=== PATIENT | female | born 1990 | race Caucasian/White ===

== ENCOUNTER 2018-03-31 21:43 | Inpatient (IN) ==
[2018-04-01] MEDS ORDERED: Naloxone 0.4 MG/ML INJ IVP PRN (02:10)
[2018-04-01] MEDS ORDERED: Acetaminophen 325 MG TABLET PO PRN (02:10)
--- NOTE | 2018-04-01 02:30 | Internal Med History&Physical ---
Date of Encounter: 04/01/18 Time of Encounter: 01:30 Internal Medicine - H&P: HPI Chief complaint: Fever and sore throat Admitted From: Home Plans for Post Hospital Care: Home History of present illness: Ms. Michael is a 27 year old female present to [facility] emergency room for fever and sore throat. Past medical history is significant for repeat tonsillitis. Patient has sore throat and fever since Thursday. Patient went to [facility] and was treated as tonsillitis with the Rocephin. Patient feels better after 3 days IV Rocephin treatment and was discharged home with by mouth Augmentin yesterday. Patient feels still have difficulty swallowing and pain on swallowing today and came back to ER. In the emergency room, CT neck has been done which shows tonsillitis but no abscess. Patient has fever on Thursday with temperature 103. Patient has nausea and vomited once yesterday. The vomiting is stomach content, no blood in it. Patient to report heart rate is low to 30 to 40s yesterday. She also complained mild headache. Patient denies difficult breathing, drooling. About 2 weeks ago, patient has cat bite on her right hand and was prescribed clindamycin by PCP. Patient developed rashes. Denies itching. Patient went to see PCP for the rashes and was suspected [place] spotted fever and treated with doxycycline. Not sure rashes is due to clindamycin or [place] spotted fever. Doxycycline has been discontinued during hospitalization in [facility]. Patient denies history of tick bite. Past Med Surg Social Fam HX - Past Medical History Additional medical history: Headaches Psychiatric history: anxiety - Past Surgical History Surgical History: cholecystectomy - Social History Smoking Status: Never smoker Smokeless Tobacco Status: No Alcohol use: none Drug use: none - Family History Mother Living Status: Still Living Hx Family Cardiac Disorders: Yes (HTN) Hx Family Respiratory Disorders: Yes (asthma) Father Living Status: Still Living Hx Family Endocrine Disorder: Yes (DM) Internal Medicine - H&P: Meds 3 Allergy/AdvReac Type Severity Reaction Status Date / Time Sulfa (Sulfonamide Allergy Severe Anaphylaxis Verified 04/01/18 02:00 Antibiotics) clindamycin AdvReac Rash Verified 04/01/18 02:00 All Systems PM: A 10-system review of systems was performed and is negative for pertinent findings except as documented above in the HPI. - Constitutional Vitals: Temp Pulse Resp BP Pulse Ox 97.8 F 58 18 103/70 97 04/01/18 00:43 04/01/18 00:43 04/01/18 00:43 04/01/18 00:43 04/01/18 00:43 General appearance: Present: A&O X 3, no acute distress, answers questions appropriately - Head Head exam: Present: atraumatic, normocephalic - Eye Eye exam: Present: PERRL, conjuntiva pink, sclera anicteric Pupils: Present: PERRL - Neck Neck exam general surgery: Present: lymphadenopathy (With tenderness), supple, trachea midline Additional comments: B/L tonsil enlarged with prudent discharge on the surface. - Respiratory Respiratory exam: Present: CTAB. Absent: accessory muscle use, rales, rhonchi, wheezes - Cardiovascular Cardiovascular exam: Present: RRR, +S1, +S2. Absent: diastolic murmur, gallop, rubs, systolic murmur - GI/Abdominal GI/Abdominal exam: Present: normal bowel sounds, soft, tenderness (Mild LLQ tenderness without rebound or guarding), no peritoneal signs. Absent: distended - Extremities Exam Extremities exam: Present: warm, radial pulses palpable and symmetrical. Absent : calf tenderness, cyanotic, pedal edema - Neurological Exam Neurological exam: Present: CN II-XII intact, oriented X3, no focal deficits. Absent: pronater drift, facial droop, speech deficit - Skin Skin exam: Present: dry, intact - Assessment and plan (1) Tonsillitis Current Visit: Yes Status: Acute Assessment and plan: Patient has severe tonsillitis without abscess. Will place patient on Vanco and Rocephin IV. Consider ENT consult. ENT physician Dr. Lozano has been called by [place] emergency room, but not confirm the consult. Day shift please call him again. (2) Bradycardia Current Visit: Yes Status: Acute Assessment and plan: Patient reports bradycardia to 30s. Etiology is undetermined. Will place patient on cardiac monitoring, echo and EKG. (3) Thyroid lesion Current Visit: Yes Status: Acute Assessment and plan: Incidentally finding by neck CT in [place] ER. Radiologist recommended US thyroid, order placed. (4) Abdominal pain Current Visit: Yes Status: Acute Assessment and plan: Etiology is undetermined. Patient denies diarrhea. CT abdomen shows no acute abnormalities. Continue closely monitor patient and symptomatic treatment. Qualifiers: Abdominal location: left lower quadrant Qualified Code(s): R10.32 - Left lower quadrant pain (5) DVT prophylaxis Current Visit: Yes Status: Acute Assessment and plan: Patient is young and ambulating well. No anticoagulation placed - Time Spent With Patient Total time spent is greater than 50% in coordination of care (as documented) at patient's floor/unit and/or counseling patient: 40 min Greater than 35 minutes
[2018-04-01] MEDS: Ketorolac 30 MG/ML VIAL IVP PRN ×3 (02:46→14:51)
[2018-04-01] MEDS ORDERED: cefTRIAXone 1,000 MG in Water for inj. (sterile) 20 ML 10 ML IVPB SCH (03:00)
[2018-04-01 03:17] LABS: Basophils % 0.2 %; Hematocrit 36.7 % (35.3-44.9); Hemoglobin 12.2 g/dL (11.5-15.4); Immature Granulocytes % 0.3 % (0-4); Lymphocytes # 1.6 K/mcL (0.6-4.6); Lymphocytes % 15.5 %; Mean Corpuscular HGB Conc 33.2 g/dL (31.6-35.5); Mean Corpuscular Volume 90.4 fL (83.0-100.0); Mean Platelet Volume 10.3 fL (9.4-12.4); Monocytes # 0.3 K/mcL (0.0-1.3); Monocytes % 2.8 %; Neutrophils # 8.4 K/mcL (1.6-8.9); Platelet Count 187 K/mcL (140-400); Red Blood Count 4.06 M/mcL (3.82-4.97); Red Cell Distribution Width 12.7 % (11.5-14.5); Segmented Neutrophils % 81.2 %
[2018-04-01 03:35] LABS: BUN/Creatinine Ratio 20 (6-26); Blood Urea Nitrogen 11 mg/dL (6-20); Calcium 8.3 mg/dL (8.6-10.3); Carbon Dioxide 22 mEq/L (23-29); Chloride 106 mEq/L (98-107); Glucose 124 mg/dL (70-105); Osmolality,Calculated 285 (280-300); Potassium 3.8 mEq/L (3.5-5.1); Sodium 137 mEq/L (136-145); eGFR For African Americans > 60 (> 60); eGFR For Non-African Americans > 60 (> 60)
[2018-04-01 03:53] LABS: Platelet Estimate Normal (Normal)
--- NOTE | 2018-04-01 08:54 | Electrocardiograph Report ---
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
--- NOTE | 2018-04-01 10:35 | Infectious Disease Consult ---
Date of Encounter: 04/01/18 Time of Encounter: 10:34 Assessment and Plan (1) Tonsillitis Status: Acute Assessment and plan: Patient has a known history of persistent tonsillitis. - CT scan of the neck at [facility] demonstrated tonsillitis without abscess - Patient is currently on vancomycin and Rocephin IV; will d/c rocephin - Will start Unasyn 12 daily, 3g Q6 - Will order respiratory infection panel, throat CX - We will repeat CT scan if there is no improvement - Possible ENT consult Get respiratory infectious panel Get a swab culture Continue vancomycin and Zosyn for now; goal vancomycin trough 10-15 (2) Bradycardia Status: Acute Assessment and plan: Patients heart rate went down into the 40s; etiology undetermined at this time - Patient is currently on continuous telemetry - Echocardiogram has been ordered (3) Thyroid lesion Status: Acute Assessment and plan: Incidentally finding by neck CT in [facility] ER - Radiologist recommended US thyroid, order placed (4) Allergy to antibiotic Status: Acute Assessment and plan: Had a rash with clindamycin Sulfa anaphylaxis reaction (5) Obesity (BMI 30.0-34.9) Status: Acute (6) Rash Status: Acute Assessment and plan: Etiology not clear. Patient could be having a viral syndrome. I will also check syphilis and HIV. Infectious Disease HPI - Data of Consult Consult date: 04/01/18 Requesting Physician: Lux Villagran Primary Care Provider: PCP NONE - Consult Narrative Reason for consult: Fever, concern for RMSF History of present illness: Patient is a 27-year-old female who presented to [facility] ER with a chief complaint of fever and sore throat. We are consulted for management of fever and possible [place] spotted fever. Patient has a known history of repeat tonsillitis. She reported having a sore throat and fever since Thursday. Presented to [facility]; was treated with Rocephin for tonsillitis. Received IV Rocephin for 3 days; was discharged from [facility] with Augmentin. Patient reported that she still had difficulty swallowing subsequently, presented back to ER. In the emergency department, CT of the neck demonstrated tonsillitis without abscess. Reported having a fever with MAXIMUM TEMPERATURE of 103. She admitted to nausea and one episode of vomiting. Patient also reported that approximately 2 weeks prior, her cat bit her right hand; was prescribed clindamycin by her PCP. She developed rashes subsequently; her PCP prescribed her with doxycycline due to concern of [place] spotted fever. She denies having any known history of tick bite. Patient was transferred to [place] for further management. On arrival to [facility], vital signs were as follows: Temperature 97.8, HR 58, RR 18 , BP 103/70, O2 sat 97. Laboratory analysis was unremarkable; white count was 10.3. Patient had a strep test performed at [facility] which was negative. Monospot was also negative. Patient was started on Rocephin 1 g every 24 hours and vancomycin. Given Toradol for pain control. Patient was noted to be bradycardic with heart rate going down to the 40s; echocardiogram has been ordered. Patient was seen and examined at bedside this morning. Patient reports that she is still having a sore throat. Reports that the pain is getting progressively worse. Was able to swallow ice chips earlier; has not been able to eat anything else. Patient reports that she has had tonsillar problems throughout her life. Notes that she had previously seen an ENT doctor in [place] who told her that she would need to have tonsillitis at least 10 times before surgical intervention was an option. Subjective chills and fever, but denies having any abdominal pain, neck pain, nausea, vomiting, or itching. The rash that had previously been on her palms and her soles has since resolved. 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 No recent travel history. Reports an allergy to sulfa drugs and clindamycin. Denies the use of tobacco, alcohol, or drugs. Denies any known tick bites. CC: Lux Villagran Past Med Surg Social Fam HX - Past Medical History Additional medical history: Headaches Psychiatric history: anxiety - Past Surgical History Surgical History: cholecystectomy - Social History Smoking Status: Never smoker Smokeless Tobacco Status: No Alcohol use: none Drug use: none - Family History Mother Living Status: Still Living Hx Family Cardiac Disorders: Yes (HTN) Hx Family Respiratory Disorders: Yes (asthma) Father Living Status: Still Living Hx Family Endocrine Disorder: Yes (DM) Infectious Disease-CN:Meds Doxycycline Hyclate [Doxycycline Hyclate] 100 mg PO BID 04/01/18 [History] l-Norgest/E.estradiol-E.estrad [Levono-E Estrad 0.10-0.02-0.01] 1 tab PO DAILY 04/01/18 [History] predniSONE [PredniSONE] 5 mg PO AD 04/01/18 [History] 3 Allergy/AdvReac Type Severity Reaction Status Date / Time Sulfa (Sulfonamide Allergy Severe Anaphylaxis Verified 04/01/18 02:00 Antibiotics) clindamycin AdvReac Rash Verified 04/01/18 02:00 Review of systems: 10 point review of systems done, negative other for what is mentioned in history of present illness. - Constitutional Constitutional: Present: fatigue, fever(s), lethargy, malaise Additional comments: Patient reports a subjective sensation of fever - Cardiovascular Cardiovascular: Present: slow heart rate. Absent: chest pain, chest pain at rest, chest pain with activity, dyspnea on exertion, leg edema - Respiratory Respiratory: Absent: cough, dyspnea, wheezing, stridor - Gastrointestinal Gastrointestinal: Absent: abdominal pain, nausea, vomiting - Musculoskeletal Musculoskeletal: Absent: arthralgias, myalgias - Integumentary Integumentary: Absent: rash, wounds Exam - Constitutional Vitals: Temp Pulse Resp BP Pulse Ox 98.5 F 46 15 109/72 98 04/01/18 10:14 04/01/18 10:14 04/01/18 10:14 04/01/18 10:14 04/01/18 10:14 - Head Head exam: Present: atraumatic, normocephalic - ENT Additional comments: Uvula midline - Expanded ENT Exam Mouth exam: Absent: drooling, muffled voice, tongue elevation Teeth exam: Absent: dental caries Throat exam: Present: tonsillar erythema, tonsillar exudate (Tonsillar erythema and exudate present bilaterally. No shift in uvula for midline.) - Neck Neck exam: Present: lymphadenopathy (Patient has anterior cervical lymphadenopathy bilaterally), tenderness. Absent: meningismus - Respiratory Respiratory exam: Present: CTAB. Absent: decreased breath sounds, rales, respiratory distress, rhonchi, wheezes, tachypnea - Cardiovascular Cardiovascular exam: Present: bradycardia, +S1, +S2. Absent: irregular rhythm, systolic murmur - GI/Abdominal GI/Abdominal exam: Present: soft. Absent: tenderness - Extremities Exam Extremities exam: Present: full ROM. Absent: joint swelling - Neurological Exam Neurological exam: Present: alert, oriented X3, no focal deficits - Psychiatric Psychiatric exam: Present: anxious, normal affect, normal mood - Skin Skin exam: Absent: rash Additional comments: No rash visible on hands or feet. Mild texture changes apparent on palms. Infectious Disease CN: Results - Labs CBC & Chem 7: 04/01/18 02:56 04/01/18 02:56 Cultures: Cultures 04/01/18 02:56 Blood Culture - Preliminary Peripheral Venipuncture Culture is incubating and being continuously monitored for growth. Final report to follow. 04/01/18 02:56 Blood Culture - Preliminary Peripheral Venipuncture Culture is incubating and being continuously monitored for growth. Final report to follow. Consult Discharge Plan - Plan Referrals: NONE,PCP [Primary Care Provider] - - Attending Attestation I examined this patient and my medical decision-making was reviewed with the Resident Physician. I agree with the documented findings, disposition and treatment plan as described except to the extent set forth below. Patient is a 27-year-old woman with past medical history mentioned below states that a couple weeks ago started having tonsillar pain and swelling and having difficulty swallowing. Patient tells me she has this recurrent infection frequently. Patient apparently was given doxycycline because she also was having a rash on her hands and on her feet and palms and soles of the feet. Patient states that with doxycyclines who is doing worse and worse. Patient was seen at [facility] was admitted again was started on Rocephin area received 2 days of Rocephin and was discharged on Augmentin. That evening to improve her symptoms. Patient was feeling much worse eventually came here for evaluation. Patient did have a CT neck at the outside facility. I will have the report by review the CT itself and it does not appear to have a peritonsillar abscess. Patient was found vancomycin and Rocephin. Currently patient appears comfortable does not appear toxic states that she feels better but he gave her a septic spray that numbs her throat. On physical exam she does have significant exudate on both sides. And there is tonsillar swelling but the uvula is midline and there is no signs of peritonsillar abscess. Further questioning patient is sexually active with one person that she has been with for 2 months. She states that she always uses protection. Denies any history of STDs. The rest of her history physical exam and exposure history is really unremarkable. She grew up in [place] and lives in [place] last her for 3 months. 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 I do not think any of this is relevant at this point. check swab cultuere check HIV check RPR check Respiratory infectious panel.
--- NOTE | 2018-04-01 11:04 | Electrophysiology Consult Note ---
Date of Encounter: 04/01/18 Time of Encounter: 10:59 Assessment and Plan (1) Bradycardia Current Visit: Yes Status: Acute Sinus bradycardia. Likely secondary to vagal stimulus form acute infection. No evidence of AV block. Thyroid disease also a possibility and is currently being worked up. At this point I don't think any further cardiac testing is needed. Discussion w patient/family: The assessment and plan as outlined above was discussed with the patient and/or family members who expressed understanding and agreement. All questions were answered. Thank you for involving us in the care of your patient. Please call with any questions. History of Present Illness Consult date: 04/01/18 Requesting physician: Sury Hines Consult reason: Bradycardia Chief complaint: Tonsillitis History of present illness: Ms. Michael is a 27 year old female who has been suffering form multiple infectious problems recently, the most recent being tonsilitis. While hospitalized she has been noted to have sinus bradycardia. She notes that previous to this acute exacerbation her heart rate often ran on high 40s. Past Med Surg Social Fam HX - Past Medical History Additional medical history: Headaches Psychiatric history: anxiety - Past Surgical History Surgical History: cholecystectomy - Social History Smoking Status: Never smoker Smokeless Tobacco Status: No Alcohol use: none Drug use: none - Family History Mother Living Status: Still Living Hx Family Cardiac Disorders: Yes (HTN) Hx Family Respiratory Disorders: Yes (asthma) Father Living Status: Still Living Hx Family Endocrine Disorder: Yes (DM) Medications and Allergies Doxycycline Hyclate [Doxycycline Hyclate] 100 mg PO BID 04/01/18 [History] l-Norgest/E.estradiol-E.estrad [Levono-E Estrad 0.10-0.02-0.01] 1 tab PO DAILY 04/01/18 [History] predniSONE [PredniSONE] 5 mg PO AD 04/01/18 [History] 3 Allergy/AdvReac Type Severity Reaction Status Date / Time Sulfa (Sulfonamide Allergy Severe Anaphylaxis Verified 04/01/18 02:00 Antibiotics) clindamycin AdvReac Rash Verified 04/01/18 02:00 All Systems Review: The remainder of the systems were reviewed and are negative Physical Examination Vital Signs, Last 4 Hours Temp Pulse Resp BP Pulse Ox 04/01/18 10:14 98.5 F 46 15 109/72 98 General: Conversant, No Apparent Distress Neck: No JVD, Normal carotid pulses Cardiac: Reg Rate and Rhythm, Normal S1 and S2, No Murmur Lungs: Normal Breath Sounds, No Wheeze, Rales, Rhonchi Neuro: Alert and responsive, No focal deficits noted Abdomen: Soft, Non-Tender Skin: No rashes noted on visualized skin Musculoskeletal: No Chest Wall Tenderness Extremities: No Clubbing, No Cyanosis, No Edema, Normal Pulses Results 04/01/18 02:56 04/01/18 02:56 Lab Results 04/01/18 04/01/18 02:56 02:56 WBC 10.3 Hgb 12.2 Hct 36.7 Plt Count 187 Sodium 137 Potassium 3.8 Chloride 106 Carbon Dioxide 22 L BUN 11 Creatinine 0.54 L Glucose 124 H Calcium 8.3 L TSH 0.600 - EKG Interpretation EKG results cardiology: personally reviewed (Sinus bradycardia) Consult Discharge Plan - Plan Referrals: NONE,PCP [Primary Care Provider] -
[2018-04-01] MEDS ORDERED: *HR* OxyCODONE Immed Rel 5 MG TABLET PO PRN (14:10)
[2018-04-01] MEDS ORDERED: Chloraseptic Spray 177 ML BOTTLE MM PRN (14:17)
[2018-04-01] MEDS: 0.9 % Sodium Chloride 1,000 ML IVC SCH (14:56)
[2018-04-01] MEDS: Ketorolac 30 MG/ML VIAL IVP SCH ×2 (21:37→21:40)
[2018-04-02] MEDS: Ampicillin/Sulbactam 3,000 MG in 0.9 % Sodium Chloride Mini Bag 100 ML IVPB SCH ×5 (00:11→23:14)
[2018-04-02] MEDS: 0.9 % Sodium Chloride 1,000 ML IVC SCH ×2 (03:06→21:12)
[2018-04-02] MEDS: Ketorolac 30 MG/ML VIAL IVP SCH ×4 (03:36→23:15)
[2018-04-02] MEDS: Ondansetron 4 MG/2 ML VIAL IVP PRN (08:57)
--- NOTE | 2018-04-02 10:23 | Infectious Disease Progress No ---
Date of Encounter: 04/02/18 Time of Encounter: 10:20 - Assessment and Plan (1) Tonsillitis Current Visit: Yes Status: Acute Patient has a known history of persistent tonsillitis. - CT scan of the neck at [facility] demonstrated tonsillitis without abscess - Patient is currently on vancomycin and Rocephin IV; will d/c rocephin - Will order respiratory infection panel, throat CX - We will repeat CT scan if there is no improvement - ENT consult has been ordered - Get respiratory infectious panel - Get a swab culture - Continue vancomycin and Unasyn for now; goal vancomycin trough 10-15 (2) Bradycardia Current Visit: Yes Status: Acute Patients heart rate went down into the 40s; etiology undetermined at this time - Electrophysiology is on board; per EP note: Patient's condition likely secondary to vagal stimulus form acute infection; No evidence of AV block - Thyroid disease also a possibility; currently being worked up (3) Thyroid lesion Current Visit: Yes Status: Acute Incidentally finding by neck CT in [facility] ER (4) Allergy to antibiotic Current Visit: Yes Status: Acute Had a rash with clindamycin Sulfa anaphylaxis reaction (5) Obesity (BMI 30.0-34.9) Current Visit: Yes Status: Acute (6) Rash Current Visit: Yes Status: Acute Etiology not clear. Patient could be having a viral syndrome. - HIV/T.Pallidium nonreactive - Subjective Interval history: Patient was seen and examined at [facility] this morning. She reports that she is feeling the same since yesterday. Has not been able to eat or drink much except for broth. Still complains of a sore throat and swollen lymph nodes in her neck. Also states that her stomachhurts. She denies fever, chills, nausea , vomiting, or neck pain. No further complaints. Infect Dis PN-Objective Data - Labs CBC & Chem 7: 04/04/18 08:15 04/04/18 08:15 Labs: Laboratory Results - last 24 hr 04/01/18 04/01/18 04/01/18 02:56 20:59 20:59 TSH 0.600 Free T4 1.09 T.pallidum Ab Interpret Negative HIV Ag/Ab Combo Qual Nonreactive Cultures: Cultures 04/01/18 02:56 Blood Culture - Preliminary Peripheral Venipuncture Culture is incubating and being continuously monitored for growth. Final report to follow. 04/01/18 02:56 Blood Culture - Preliminary Peripheral Venipuncture Culture is incubating and being continuously monitored for growth. Final report to follow. Serology 04/01/18 04/01/18 Range/Units 20:59 20:59 T.pallidum Ab Interpret Negative (NEGATIVE) HIV Ag/Ab Combo Qual Nonreactive (Nonreactive) - Impressions Impressions Echocardiogram 04/01/18 02:20 Impressions: LVEF 55-60%. No segmental dysfunction. Normal left ventricular diastolic function. No pulmonary hypertension. No significant valvular dysfunction. Left Ventricular Wall Motion: Rest Echo Findings All wall segments showed normal motion. Findings: Study Quality * Technically adequate exam. Right Ventricle * Normal right ventricular structure and function. Right Atrium * Normal right atrial size. Aortic Valve * Trileaflet aortic valve with normal function. Interatrial Septum * No evidence of PFO by color Doppler. Aorta * Normally sized aortic root. Pericardium * The pericardium appears normal. ECG Findings * Sinus bradycardia. Left Ventricle * LVEF 55-60%. * No segmental dysfunction. * Normal left ventricular diastolic function. Left Atrium * Mildly dilated left atrium. Tricuspid Valve * No tricuspid stenosis. * Trace tricuspid regurgitation. * Estimated RVSP is 19 mmHg. * Estimated RA pressure is 0-5 mmHg. * No pulmonary hypertension. Pulmonic Valve * No pulmonic stenosis. * Mild pulmonic regurgitation. Mitral Valve * Normal mitral valve structure. * No mitral stenosis. * Trace mitral regurgitation. IVC * Normal IVC dimensions and inspiratory collapse. Thyroid Ultrasound 04/01/18 13:00 IMPRESSION: 1. 0.6 cm x 0.5 cm x 0.3 cm TI-RADS TR3 nodule in the upper left thyroid lobe and 1.2 cm x 1.1 cm x 0.6 cm TR1 nodule in the lower left thyroid lobe. No follow-up is recommended as below. 2. Otherwise normal sonographic appearance of the thyroid. RECOMMENDATIONS: ACR TI-RADS recommendations TR3 (3 points): FNA if >= 2.5 cm; follow-up if 1.5-2.4 cm in 1, 3, and 5 years TR1 (0 points): No FNA or follow-up D/ / Roger Santiago MD / Roger Santiago MD Interpreting Provider: Roger Santiago MD Exam - Constitutional Vitals: Temp Pulse Resp BP Pulse Ox 97.9 F 60 14 105/70 97 04/02/18 07:02 04/02/18 07:02 04/02/18 07:02 04/02/18 07:02 04/02/18 07:02 General appearance: no acute distress - Respiratory Respiratory exam: Present: CTAB. Absent: decreased breath sounds, rales, rhonchi, tachypnea - Cardiovascular Cardiovascular exam: Present: RRR, +S1, +S2. Absent: bradycardia, systolic murmur - GI/Abdominal GI/Abdominal exam: Present: soft. Absent: tenderness - Psychiatric Psychiatric exam: Present: normal affect, normal mood - Skin Skin exam: Present: dry, intact Consult Discharge Plan - Plan Referrals: NONE,PCP [Primary Care Provider] - - Attending Attestation I examined this patient and my medical decision-making was reviewed with the Resident Physician. I agree with the documented findings, disposition and treatment plan as described except to the extent set forth below.
[2018-04-02 11:41] LABS: Adenovirus Not Detected (Not Detect); Bordetella Pertussis Not Detected (Not Detect); Chlamydophila pneumoniae Not Detected (Not Detect); Coronavirus 229E Not Detected (Not Detect); Coronavirus HKU1 Not Detected (Not Detect); Coronavirus NL63 Not Detected (Not Detect); Coronavirus OC43 Not Detected (Not Detect); Human Metapneumovirus Not Detected (Not Detect); Human Rhinovirus/Enterovirus Not Detected (Not Detect); Influenza A Subtype 2009 H1 Not Detected (Not Detect); Influenza A Untypeable Not Detected (Not Detect); Influenza B Not Detected (Not Detect); Mycoplasma pneumoniae Not Detected (Not Detect); Parainfluenza Virus 1 Not Detected (Not Detect); Parainfluenza Virus 2 Not Detected (Not Detect); Parainfluenza Virus 3 Not Detected (Not Detect); Parainfluenza Virus 4 Not Detected (Not Detect); Respiratory Syncytial Virus Not Detected (Not Detect)
[2018-04-02] MEDS ORDERED: Isovue-370 500 ML INFUS..BTL IV ONE (12:41)
--- NOTE | 2018-04-02 16:59 | ENT - Consult Note ---
Date of Encounter: 04/02/18 Time of Encounter: 12:00 Assessment and Plan (1) Tonsillitis Current Visit: Yes Status: Acute She has exudative tonsillitis and has a h/o recurrent tonsillitis. She meets criteria for outpatient tonsillectomy but for her admission I don't see a surgical issue at this time. Advise abx and steroids w/ transition to PO and d/ c home when she can tolerate liquids. F/U with ENT as outpatient. History of Present Illness Consult date: 04/02/18 Reason for ENT Consult: other (tonsillitis) History of present illness: 27 y/o F here for tonsillitis. She has had this for over a week, needed admission for pain control and lack of PO intake a week ago at OSH, was discharged but came back to their ED and she was transferred here for escalation of care. She was admitted to hospitalist service through our ED. Admitted on IV Unsayn and Vanc. She still has a very sore throat and has trouble swallowing. Has been using topical anethetic spray which helps. Had CT neck w/ contrast on 03/31/18 which did not show any abscess formation. Had steroids in the outside ED. Has h/o recurrent tonsillitis 3-4 a year for years. Required admission once before in 2009, no abscess hx. Past Med Surg Social Fam HX - Past Medical History Additional medical history: Headaches Psychiatric history: anxiety - Past Surgical History Surgical History: cholecystectomy - Social History Smoking Status: Never smoker Smokeless Tobacco Status: No Alcohol use: none Drug use: none - Family History Mother Living Status: Still Living Hx Family Cardiac Disorders: Yes (HTN) Hx Family Respiratory Disorders: Yes (asthma) Father Living Status: Still Living Hx Family Endocrine Disorder: Yes (DM) Medications and Allergies Doxycycline Hyclate [Doxycycline Hyclate] 100 mg PO BID 04/01/18 [History] l-Norgest/E.estradiol-E.estrad [Levono-E Estrad 0.10-0.02-0.01] 1 tab PO DAILY 04/01/18 [History] predniSONE [PredniSONE] 5 mg PO AD 04/01/18 [History] 3 Allergy/AdvReac Type Severity Reaction Status Date / Time Sulfa (Sulfonamide Allergy Severe Anaphylaxis Verified 04/01/18 02:00 Antibiotics) clindamycin AdvReac Rash Verified 04/01/18 02:00 ENT - ROS - EENT Nose, mouth and throat: sore throat ENT Exam Initial Vital Signs Temp Pulse Resp BP Pulse Ox 97.8 F 58 18 103/70 97 04/01/18 00:43 04/01/18 00:43 04/01/18 00:43 04/01/18 00:43 04/01/18 00:43 - General physical appearance moderate pain, obese - ENT normal pinna, normal nares, normal mucosa, no hearing loss, no congestion, mucosal exudate, CN 2-12 grossly intact, Other (3+ tonsils w/ exudate, no evidence of [employer] (no soft palate swelling); good neck ROM) - Neck no masses, other (some tender level II LAD) Exam Initial Vital Signs Temp Pulse Resp BP Pulse Ox 97.8 F 58 18 103/70 97 04/01/18 00:43 04/01/18 00:43 04/01/18 00:43 04/01/18 00:43 04/01/18 00:43 Results - Labs 04/01/18 02:56 04/01/18 02:56 Abnormal lab results Carbon Dioxide 22 mEq/L (23-29) L 04/01/18 02:56 Creatinine 0.54 mg/dL (0.60-1.20) L 04/01/18 02:56 Glucose 124 mg/dL (70-105) H 04/01/18 02:56 Calcium 8.3 mg/dL (8.6-10.3) L 04/01/18 02:56 All other labs normal. Consult Discharge Plan - Plan Referrals: NONE,PCP [Primary Care Provider] -
[2018-04-03] MEDS: Ketorolac 30 MG/ML VIAL IVP SCH ×3 (04:43→16:28)
[2018-04-03] MEDS: Ampicillin/Sulbactam 3,000 MG in 0.9 % Sodium Chloride Mini Bag 100 ML IVPB SCH ×4 (04:56→23:46)
[2018-04-03] MEDS: Ondansetron 4 MG/2 ML VIAL IVP PRN (04:59)
[2018-04-03] MEDS: 0.9 % Sodium Chloride 1,000 ML IVC SCH ×4 (05:28→20:08)
[2018-04-03 09:31] LABS: Basophils % 0.2 %; Eosinophils # 0.2 K/mcL (0.0-0.6); Eosinophils % 3.6 %; Hematocrit 36.5 % (35.3-44.9); Hemoglobin 12.7 g/dL (11.5-15.4); Immature Granulocytes % 0.3 % (0-4); Lymphocytes % 47.7 %; Mean Corpuscular HGB Conc 34.8 g/dL (31.6-35.5); Mean Corpuscular Hemoglobin 31.1 pg (28.0-33.3); Mean Corpuscular Volume 89.2 fL (83.0-100.0); Mean Platelet Volume 10.5 fL (9.4-12.4); Monocytes # 0.4 K/mcL (0.0-1.3); Monocytes % 6.8 %; Platelet Count 182 K/mcL (140-400); Red Blood Count 4.09 M/mcL (3.82-4.97); Red Cell Distribution Width 12.3 % (11.5-14.5); Segmented Neutrophils % 41.4 %
[2018-04-03 09:37] LABS: Lymphocytes # 3.1 K/mcL (0.6-4.6); Neutrophils # 2.7 K/mcL (1.6-8.9)
[2018-04-03] MEDS ORDERED: Promethazine 12.5 MG in 0.9 % Sodium Chloride 50 ML IVPB PRN (09:40)
[2018-04-03] MEDS ORDERED: *HR* Promethazine 25 MG/ML VIAL IVP PRN (09:42)
[2018-04-03] MEDS ORDERED: *HR* Promethazine 25 MG/ML VIAL ONE (09:44)
[2018-04-03 09:50] LABS: BUN/Creatinine Ratio 19 (6-26); Blood Urea Nitrogen 12 mg/dL (6-20); Calcium 8.5 mg/dL (8.6-10.3); Carbon Dioxide 26 mEq/L (23-29); Chloride 106 mEq/L (98-107); Glucose 99 mg/dL (70-105); Osmolality,Calculated 284 (280-300); Potassium 3.3 mEq/L (3.5-5.1); Sodium 137 mEq/L (136-145); eGFR For African Americans > 60 (> 60); eGFR For Non-African Americans > 60 (> 60)
[2018-04-03 10:00] LABS: Platelet Estimate Normal (Normal); Reactive Lymphocytes Present (Not Present)
[2018-04-03] MEDS ORDERED: Potassium Chloride 40 MEQ, Lidocaine 1% 2 ML in D5% in Water 500 ML IVPB ONE (14:44)
[2018-04-03] MEDS ORDERED: Potassium Chloride Elixir 20 MEQ/15 ML UDC PO ONE (18:25)
--- NOTE | 2018-04-03 22:56 | Internal Med Progress Note ---
Date of Encounter: 04/02/18 Time of Encounter: 19:00 - Assessment and plan (1) Exudative tonsillitis Current Visit: Yes Status: Acute (2) Dysphagia Current Visit: Yes Status: Acute Qualifiers: Dysphagia type: oral phase Qualified Code(s): R13.11 - Dysphagia, oral phase (3) Multiple thyroid nodules Current Visit: Yes Status: Chronic (4) Acute hypokalemia Current Visit: Yes Status: Acute - Time Spent With Patient Total time spent is greater than 50% in coordination of care (as documented) at patient's floor/unit and/or counseling patient: 25 - 35 minutes - Subjective Interval history: .. The patient feels better. The pain in the throat is moderate in intensity. She feels that she is ready to try mechanical soft diet. Denies fever and chills. She is afebrile. Denies chest pain. Denies difficulty breathing, coughing and wheezing. She has very mild mid epigastric discomfort. She has normal urination. OBJECTIVE: .. Skin: Free of rash and discoloration. ENMT: Her tonsils are big. They are covered by grayish/whitish exudate. Eyes: Sclera is white. There is no discharge from eyes. Respiratory: Normal breath sounds; no crackles or wheezes. CV: Heart is regular; no gallop or murmur. GI: Abdomen is soft and not tender. There is no palpable mass or visceromegaly. Neuro: There is no focal deficits. ASSESSMENT AND PLAN: .. Exudative tonsillitis/dysphagia. The patient has been seen by infectious diseases and ENT diseases. Will continue IV Unasyn/IV vancomycin. Her cultures are negative. Will put her on mechanical soft diet. Multiple thyroid nodules. See notes from radiology. They do not require any follow-ups. Mild hypokalemia. Secondary to IV fluids. We will repeat electrolytes tomorrow. - Constitutional Vitals: Temp Pulse Resp BP Pulse Ox 98.3 F 68 16 114/78 95 04/03/18 18:51 04/03/18 18:51 04/03/18 18:51 04/03/18 18:51 04/03/18 18:51 General appearance: Present: A&O X 3, no acute distress, answers questions appropriately Internal Medicine: Result - Labs CBC & Chem 7: 07/07/18 08:57 04/03/18 08:57 Labs: Short CBC 04/03/18 Range/Units 08:57 WBC 6.4 (4.3-11.1) K/mcL Hgb 12.7 (11.5-15.4) g/dL Hct 36.5 (35.3-44.9) % Plt Count 182 (140-400) K/mcL Neutrophils # 2.7 (1.6-8.9) K/mcL BMP 04/03/18 08:57 Sodium 137 Potassium 3.3 L Chloride 106 Carbon Dioxide 26 BUN 12 Creatinine 0.64 Glucose 99 Calcium 8.5 L Consult Discharge Plan - Plan Referrals: NONE,PCP [Primary Care Provider] -
--- NOTE | 2018-04-03 23:21 | Internal Med Progress Note ---
Date of Encounter: 04/03/18 Time of Encounter: 19:00 - Assessment and plan (1) Exudative tonsillitis Current Visit: Yes Status: Acute (2) Dysphagia Current Visit: Yes Status: Acute Qualifiers: Dysphagia type: oral phase Qualified Code(s): R13.11 - Dysphagia, oral phase (3) Multiple thyroid nodules Current Visit: Yes Status: Chronic (4) Acute hypokalemia Current Visit: Yes Status: Acute - Time Spent With Patient Total time spent is greater than 50% in coordination of care (as documented) at patient's floor/unit and/or counseling patient: 25 - 35 minutes - Subjective Interval history: .. She is on mechanical soft diet. She ate some mashed potatoes for lunch. She is okay with similar foods. The pain in the area of her tonsils is mild/ moderate. It continues to compromise his intake of fluids and calories. Denies chest pain. Denies difficulty breathing, coughing and wheezing. She has very mild mid epigastric discomfort. She has normal urination. She does have history of recurrent tonsillitis in the last time a few years. It happens 3 or 4 times a year. OBJECTIVE: .. Skin: Free of rash and discoloration. ENMT: Her tonsils are big. They are covered by grayish/whitish exudate. Today I can see some areas of her tonsils not covered by exudate. The tonsils are moderately enlarged. Eyes: Sclera is white. There is no discharge from eyes. Respiratory: Normal breath sounds; no crackles or wheezes. CV: Heart is regular; no gallop or murmur. GI: Abdomen is soft and not tender. There is no palpable mass or visceromegaly. Neuro: There is no focal deficits. ASSESSMENT AND PLAN: .. Exudative tonsillitis/dysphagia. The patient has been seen by infectious diseases and ENT diseases. Will continue IV Unasyn/IV vancomycin. Her cultures are negative. We will continue mechanical so diet. The patient will likely have tonsillectomy after discharging her home. Multiple thyroid nodules. See notes from radiology. They do not require any follow-ups. Acute hypokalemia.. Secondary to IV fluids. We tried to give her potassium chloride rider with lidocaine. She cannot tolerate them. We will try potassium chloride elixir. - Constitutional Vitals: Temp Pulse Resp BP Pulse Ox 98.3 F 68 16 114/78 95 04/03/18 18:51 04/03/18 18:51 04/03/18 18:51 04/03/18 18:51 04/03/18 18:51 General appearance: Present: A&O X 3, no acute distress, answers questions appropriately Internal Medicine: Result - Labs CBC & Chem 7: 04/03/18 08:57 04/03/18 08:57 Labs: Short CBC 04/03/18 Range/Units 08:57 WBC 6.4 (4.3-11.1) K/mcL Hgb 12.7 (11.5-15.4) g/dL Hct 36.5 (35.3-44.9) % Plt Count 182 (140-400) K/mcL Neutrophils # 2.7 (1.6-8.9) K/mcL BMP 04/03/18 08:57 Sodium 137 Potassium 3.3 L Chloride 106 Carbon Dioxide 26 BUN 12 Creatinine 0.64 Glucose 99 Calcium 8.5 L Consult Discharge Plan - Plan Referrals: NONE,PCP [Primary Care Provider] -
[2018-04-04] MEDS: Ampicillin/Sulbactam 3,000 MG in 0.9 % Sodium Chloride Mini Bag 100 ML IVPB SCH ×3 (05:17→17:53)
[2018-04-04] MEDS: 0.9 % Sodium Chloride 1,000 ML IVC SCH ×2 (08:14→23:00)
[2018-04-04 08:51] LABS: Basophils % 0.3 %; Eosinophils # 0.4 K/mcL (0.0-0.6); Eosinophils % 5.7 %; Hematocrit 36.5 % (35.3-44.9); Hemoglobin 12.2 g/dL (11.5-15.4); Immature Granulocytes % 0.3 % (0-4); Lymphocytes # 3.4 K/mcL (0.6-4.6); Lymphocytes % 48.1 %; Mean Corpuscular HGB Conc 33.4 g/dL (31.6-35.5); Mean Corpuscular Hemoglobin 30.1 pg (28.0-33.3); Mean Corpuscular Volume 90.1 fL (83.0-100.0); Mean Platelet Volume 10.4 fL (9.4-12.4); Monocytes # 0.5 K/mcL (0.0-1.3); Monocytes % 6.6 %; Neutrophils # 2.7 K/mcL (1.6-8.9); Platelet Count 188 K/mcL (140-400); Red Blood Count 4.05 M/mcL (3.82-4.97); Red Cell Distribution Width 12.5 % (11.5-14.5)
[2018-04-04 09:02] LABS: BUN/Creatinine Ratio 13 (6-26); Blood Urea Nitrogen 9 mg/dL (6-20); Carbon Dioxide 28 mEq/L (23-29); Chloride 108 mEq/L (98-107); Glucose 94 mg/dL (70-105); Magnesium 1.9 mg/dL (1.6-2.6); Osmolality,Calculated 286 (280-300); Potassium 3.5 mEq/L (3.5-5.1); Sodium 139 mEq/L (136-145); eGFR For African Americans > 60 (> 60); eGFR For Non-African Americans > 60 (> 60)
[2018-04-04 09:19] LABS: Platelet Estimate Normal (Normal); Reactive Lymphocytes Present (Not Present)
[2018-04-04] MEDS: Ondansetron 4 MG/2 ML VIAL IVP PRN ×2 (11:38→20:26)
--- NOTE | 2018-04-04 20:52 | Internal Med Progress Note ---
Date of Encounter: 04/04/18 Time of Encounter: 20:40 - Assessment and plan (1) Exudative tonsillitis Current Visit: Yes Status: Acute (2) Dysphagia Current Visit: Yes Status: Acute Qualifiers: Dysphagia type: oral phase Qualified Code(s): R13.11 - Dysphagia, oral phase (3) Multiple thyroid nodules Current Visit: Yes Status: Chronic (4) Acute hypokalemia Current Visit: Yes Status: Acute - Time Spent With Patient Total time spent is greater than 50% in coordination of care (as documented) at patient's floor/unit and/or counseling patient: 25 - 35 minutes - Subjective Interval history: .. She is on mechanical soft diet. She seems to be doing better with her mechanical soft diet. She ate 65% of her lunch and 100% of her dinner. She has less pain when swallowing. It is mild/moderate. Her voice has not changed at all. Denies coughing and wheezing. She has very mild mid epigastric discomfort. She has normal urination. OBJECTIVE: .. Skin: Free of rash and discoloration. ENMT: Her tonsils are big. They are covered in some places by grayish/whitish exudate. Eyes: Sclera is white. There is no discharge from eyes. Respiratory: Normal breath sounds; no crackles or wheezes. CV: Heart is regular; no gallop or murmur. GI: Abdomen is soft and not tender. There is no palpable mass or visceromegaly. Neuro: There is no focal deficits. ASSESSMENT AND PLAN: .. Exudative tonsillitis/dysphagia. The patient has been seen by infectious diseases and ENT diseases. Will continue IV Unasyn/IV vancomycin. Her cultures are negative. We will continue mechanical soft diet. The patient will likely have tonsillectomy after discharging her home. Multiple thyroid nodules. See notes from radiology. They do not require any follow-ups. Acute hypokalemia.. Secondary to IV fluids. Her potassium today is 3.5; 3.3 yesterday. Blood work from today shows a normal CBC. It also shows normal BMP with the exception of mildly decreased potassium. Magnesium is 1.9. I anticipate her discharge her tomorrow. We will be talking with infectious diseases and ENT about follow-up for this patient. - Constitutional Vitals: Temp Pulse Resp BP Pulse Ox 98.6 F 62 14 96/61 96 07/08/18 14:47 04/04/18 14:47 04/04/18 14:47 04/04/18 14:47 04/04/18 14:47 General appearance: Present: A&O X 3, no acute distress, answers questions appropriately Internal Medicine: Result - Labs CBC & Chem 7: 04/04/18 08:15 04/04/18 08:15 Labs: Short CBC 04/04/18 Range/Units 08:15 WBC 7.0 (4.3-11.1) K/mcL Hgb 12.2 (11.5-15.4) g/dL Hct 36.5 (35.3-44.9) % Plt Count 188 (140-400) K/mcL Neutrophils # 2.7 (1.6-8.9) K/mcL BMP 04/04/18 08:15 Sodium 139 Potassium 3.5 Chloride 108 H Carbon Dioxide 28 BUN 9 Creatinine 0.71 Glucose 94 Calcium 8.0 L - Impressions Impressions Soft Tissue Neck CT 04/02/18 12:41 IMPRESSION: Tonsillitis without peritonsillar abscess. D/ / 04/02/2018 13:33:35 Reji Arellano MD / milana Interpreting Provider: Reji Arellano MD Consult Discharge Plan - Plan Referrals: NONE,PCP [Primary Care Provider] -
[2018-04-05] MEDS: Ampicillin/Sulbactam 3,000 MG in 0.9 % Sodium Chloride Mini Bag 100 ML IVPB SCH ×3 (00:06→11:37)
[2018-04-05] MEDS: 0.9 % Sodium Chloride 1,000 ML IVC SCH (07:51)
[2018-04-05 11:13] VITALS: BP 98/66
--- NOTE | 2018-04-05 12:51 | Infectious Disease Progress No ---
Date of Encounter: 04/05/18 Time of Encounter: 09:00 - Assessment and Plan (1) Tonsillitis Status: Acute Patient has a known history of persistent tonsillitis. - CT scan of the neck at [facility] demonstrated tonsillitis without abscess Currently on mechanical soft diet; Less pain with swallowing Page was seen by ENT on 04/02; according to ENT consult note, patient meets criteria for outpatient tonsillectomy. No surgical issues at this time. ENT advises continuation of antibiotics and steroids with transition to by mouth and discharging home when patient can tolerate liquids. Patient will follow-up in the outpatient setting with ENT. - Respiratory infection panel was negative - Blood cultures from 04/01 are pending - Throat culture on 04/02 was negative - Patient currently on Unasyn and vancomycin, day 5 of antibiotics; Day 4 of Unasyn, day 5 of vanc. Goal vancomycin trough 10-15 (2) Bradycardia Status: Acute Patients heart rate went down into the 40s; etiology undetermined at this time - Electrophysiology was consulted; per EP note: Patient's condition likely secondary to vagal stimulus form acute infection; No evidence of AV block Thyroid studies were within normal limits (3) Thyroid lesion Status: Acute Incidentally finding by neck CT in [facility] (4) Allergy to antibiotic Status: Acute Had a rash with clindamycin Sulfa anaphylaxis reaction (5) Obesity (BMI 30.0-34.9) Status: Acute (6) Rash Status: Acute - Subjective Interval history: Patient was seen and [facility] at [facility] this morning. She reports that she is feeling the same since yesterday. Has not been able to eat or drink much except for broth. Still complains of a sore throat and swollen lymph nodes in her neck. Also states that her stomachhurts. She denies fever, chills, nausea , vomiting, or neck pain. No further complaints. Infect Dis PN-Objective Data - Labs CBC & Chem 7: 04/04/18 08:15 04/04/18 08:15 Labs: Laboratory Results - last 24 hr 04/04/18 17:39 Vancomycin Trough 6 Cultures: Cultures 04/02/18 09:25 Throat Culture - Final Throat No pathogenic beta-hemolytic streptococci isolated. 04/01/18 02:56 Blood Culture - Preliminary Peripheral Venipuncture Culture is incubating and being continuously monitored for growth. Final report to follow. 04/01/18 02:56 Blood Culture - Preliminary Peripheral Venipuncture Culture is incubating and being continuously monitored for growth. Final report to follow. Serology 04/02/18 04/01/18 04/01/18 Range/Units 09:25 20:59 20:59 T.pallidum Ab Interpret Negative (NEGATIVE) Chlamy pneumoniae PCR Not Detected (Not Detect) Adenovirus (PCR) Not Detected (Not Detect) B. pertussis DNA (PCR) Not Detected (Not Detect) B.parapertussis DNA PCR Not Detected (Not Detect) Coronavirus OC43 (PCR) Not Detected (Not Detect) Coronavirus HKU1 (PCR) Not Detected (Not Detect) Coronavirus 229E (PCR) Not Detected (Not Detect) Coronavirus NL63 (PCR) Not Detected (Not Detect) HIV Ag/Ab Combo Qual Nonreactive (Nonreactive) Human Metapneumovir PCR Not Detected (Not Detect) Influenza A (H1) PCR Not Detected (Not Detect) Influ A (H1N1/09) PCR Not Detected (Not Detect) Influenza A (H3) PCR Not Detected (Not Detect) Influenza A Untype (PCR) Not Detected (Not Detect) Influenza Type B (PCR) Not Detected (Not Detect) M.pneumoniae DNA (PCR) Not Detected (Not Detect) Parainfluenza 1 (PCR) Not Detected (Not Detect) Parainfluenza 2 (PCR) Not Detected (Not Detect) Parainfluenza 3 (PCR) Not Detected (Not Detect) Parainfluenza 4 (PCR) Not Detected (Not Detect) RSV (PCR) Not Detected (Not Detect) Entero/Rhino (PCR) Not Detected (Not Detect) Exam - Constitutional Vitals: Temp Pulse Resp BP Pulse Ox 97.8 F 64 14 98/66 98 04/05/18 11:10 04/05/18 11:10 04/05/18 11:10 04/05/18 11:10 04/05/18 11:10 Consult Discharge Plan - Plan Referrals: Roger Lopez MD [Non-Partnered Physician] - 04/14/18 10:00 am NONE,PCP [Primary Care Provider] - Prescriptions: Amoxicillin/Clavulanate [Augmentin] 875 mg PO BIDWM 7 Days #14 tablet PredniSONE [Deltasone] 20 mg PO QAM #7 tablet - Attending Attestation I examined this patient and my medical decision-making was reviewed with the Resident Physician. I agree with the documented findings, disposition and treatment plan as described except to the extent set forth below.
[2018-04-05] MEDS ORDERED: *HR* OxyCODONE Immed Rel 5 MG TABLET PO PRN (15:14)
--- NOTE | 2018-04-05 15:41 | Discharge Summary ---
Orders not resulted at time of discharge: Pending orders 04/01/18 02:56 Culture,Blood [BC] Stat 04/05/18 18:00 Vancomycin,Trough Timed Date of Encounter: 04/05/18 Time of Encounter: 15:35 - Discharge Diagnosis (1) Exudative tonsillitis Priority: Primary Status: Acute (2) Dysphagia Priority: Secondary Status: Acute Qualifiers: Dysphagia type: oral phase Qualified Code(s): R13.11 - Dysphagia, oral phase (3) Multiple thyroid nodules Priority: Secondary Status: Chronic (4) Acute hypokalemia Priority: Secondary Status: Resolved Hospital course: Ms. Michael is a 27 year old female. The patient was admitted with fever and sore throat. We found her to have exudative tonsillitis. 2 weeks before this admission she had a cat bite on her right handtreated with clindamycin by her PCP. A little bit later she developed some rash suspected to be from clindamycin or [place] spotted feverput on doxycycline. Then , she was treated at the [facility] with IV Rocephin for acute tonsillitis. The patient had a throat culture on 3 occasions did not grow strep or other organisms. Including one throat culture done in our hospital. We treated her with IV vancomycin and IV Rocephin. Consultations were obtained from infectious disease and ENT diseases. This patient had frequent episodes of tonsillitis before this hospitalization3 or 4 times a year in the last diffuse last several years. She has severe oral dysphagia in the first few days. Was not able to swallow. She got a lot of IV fluids. She developed some hypokalemia and hypomagnesemiatreated with supplemental potassium chloride and magnesium sulfate. Eventually we were able to start her on some of the diet with ground foods. She was afebrile in the last 2 days preceding this discharge. Her sore throat at discharge was only mild. He was not causing significant difficulty swallowing. She will be taking Augmentin for the next 7 days. She will be taking prednisone at 20 mg daily for the next 7 days. See other discharge orders. Discharge discussed with: patient, family, case management - Time Spent with Patient Total time spent providing and/or coordinating discharge services: Greater than 30 minutes (40 minutes) - Discharge Medications Prescriptions: Amoxicillin/Clavulanate [Augmentin] 875 mg PO BIDWM 7 Days #14 tablet PredniSONE [Deltasone] 20 mg PO QAM #7 tablet Home Medications: l-Norgest/E.estradiol-E.estrad [Levono-E Estrad 0.10-0.02-0.01] 1 tab PO DAILY 04/01/18 [History] Amoxicillin/Clavulanate [Augmentin] 875 mg PO BIDWM 7 Days #14 tablet 04/05/18 [ Rx] Chloraseptic Wallace [Chloraseptic] 2 spray MM QID PRN bottle 04/05/18 [Rx] PredniSONE [Deltasone] 20 mg PO QAM #7 tablet 04/05/18 [Rx] Allergies/Adverse Reactions: 3 Allergy/AdvReac Type Severity Reaction Status Date / Time Sulfa (Sulfonamide Allergy Severe Anaphylaxis Verified 04/01/18 02:00 Antibiotics) clindamycin AdvReac Rash Verified 04/01/18 02:00 Date of admission: 04/01/18 02:10 Primary care physician: PCP NONE Consults: 04/01/18 02:15 Consult to Infectious Diseases [CONS] Routine Consulting Provider: Infectious Disease [facility] Reason for Consult: Pt was suspected [place] Spotted Fever by PCP Call Completed: No 04/01/18 02:52 Consult to ENT [CONS] Routine Consulting Provider: E[facility] [place] Reason for Consult: Severe tonsilitis. Dr Lozano was called and discussed case with [facility] Call Completed: No 04/01/18 03:43 Consult to Cardiology [CONS] Routine Comment: Consulting Provider: Cardiology [facility] Reason for Consult: bradycardia Call Completed: No Discharging clinician: Lux Villagran Anticipated date of discharge: 04/05/18 - Constitutional Vitals: Temp Pulse Resp BP Pulse Ox 97.8 F 64 14 98/66 98 04/05/18 11:10 04/05/18 11:10 04/05/18 11:10 04/05/18 11:10 04/05/18 11:10 General appearance: Present: A&O X 3, no acute distress, answers questions appropriately - ENT Additional comments: Tonsils are moderately enlarged. There is patchy exudative covering on them. There is no surrounding lymphadenopathy. - Respiratory Respiratory exam: Present: CTAB. Absent: accessory muscle use, rales, rhonchi, wheezes - Cardiovascular Cardiovascular exam: Present: RRR, +S1, +S2. Absent: diastolic murmur, gallop, rubs, systolic murmur - GI/Abdominal GI/Abdominal exam: Present: normal bowel sounds, soft, no peritoneal signs. Absent: distended, tenderness - Patient Status Disposition: Home, Self-Care Condition: Fair Functional capacity at discharge: independent ambulation Overall status at discharge: patient is progressing back to baseline - Discharge Instructions Follow Up With: Roger Lopez MD [Non-Partnered Physician] - 04/14/18 10:00 am NONE,PCP [Primary Care Provider] - - Diet and Activity Activity: resume usual activities as tolerated - VTE Reasons for not Prescribing Prophylaxis: Treatment not Indicated - Low risk for VTE
[2018-04-05] MEDS ORDERED: Aminoglycoside Consult 1 EACH MC ONE (16:15)
== END 2018-04-05 16:16 | disposition home or self-care (01) | DRG 113 ==
LOC: 3ANU → SUATTDRO 04-01 02:10
PROVIDERS: ADMIT Internal Medicine; ATTEND Internal Medicine